=== PATIENT | female | born 1980 | race Caucasian/White ===

== ENCOUNTER 2016-10-19 08:17 | Emergency (ER) | payer MEDICAID ==
[~2016-10-19] VITALS: Ht 170.2 cm; Wt 104.0 kg
[2016-10-19 08:23] VITALS: BP 110/74
== END 2016-10-19 09:45 | disposition home or self-care (01) ==
LOC: ED 08:47
DX: S52.502A Unspecified fracture of the lower end of left radius, initial encounter for closed fracture (principal); W19.XXXA Unspecified fall, initial encounter; Y93.01 Activity, walking, marching and hiking; Y92.89 Other specified places as the place of occurrence of the external cause; Y99.9 Unspecified external cause status
CPT/HCPCS: 29125; 99283